=== PATIENT | male | born 1975 | race Caucasian/White ===

== ENCOUNTER 2023-11-29 19:22 | Emergency (ER) | payer OTHER ==
[~2023-11-29] VITALS: Ht 193 cm; Wt 102.1 kg
[2023-11-29 19:30] VITALS: BP 104/71; PULSE 108; RESP 16; TEMP 97.4; O2SAT 98
[2023-11-29] MEDS ORDERED: TRAM-748 PO (21:17)
== END 2023-11-29 21:30 | disposition home or self-care (01) ==
LOC: MED 19:22
DX: M79.671 Pain in right foot (principal); E11.9 Type 2 diabetes mellitus without complications; Z79.899 Other long term (current) drug therapy
CPT/HCPCS: 73630; 99283